=== PATIENT | female | born 1990 | race Asian ===

== ENCOUNTER 2016-12-11 11:33 | Emergency (ER) | payer OTHER ==
[2016-12-11 11:38] VITALS: BP 153/80; PULSE 77; TEMP 98; BMI 27.3
--- NOTE | 2016-12-11 11:59 | PDOC ---
History of Present Illness - General History Source: Patient Exam Limitations: No Limitations - History of Present Illness Initial Comments: 12/11/16 12:28 Patient is a 26 year old female with a significant past medical history of gout who present to the ED with vaginal bleeding for 3 weeks. Patient states that she has been actively bleeding for 3 weeks passing some quarter size clots. Patient notes that she is changing pads every 3 hours. 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 Patient states that at the time her urine was negative. She notes that the bleeding started again 3 weeks ago and has been daily. Patient states that she is sexually active denies any STD. Patient notes that her menstruation started at 9-10 years old with her periods are regular 3-4 days. <Neisha Yu - Last Filed: 12/11/16 13:08> - General History Source: Patient, Old Records Exam Limitations: No Limitations <Maria Elena Rome - Last Filed: 12/11/16 14:37> - General Chief Complaint: Vaginal Bleeding Stated Complaint: VAGINAL BLEEDING Time Seen by Provider: 12/11/16 11:57 Past History <Neisha Yu - Last Filed: 12/11/16 13:08> - Past Medical History Other medical history: gout - Psycho/Social/Smoking Cessation Hx Anxiety: No Suicidal Ideation: No Smoking History: Never smoked Have you smoked in the past 12 months: No Information on smoking cessation initiated: No Hx Alcohol Use: No Drug/Substance Use Hx: No Substance Use Type: None <Maria Elena Rome - Last Filed: 12/11/16 14:37> - Past Medical History Allergies/Adverse Reactions: Allergies Allergy/AdvReac Type Severity Reaction Status Date / Time No Known Allergies Allergy Verified 12/11/16 11:35 Review of Systems - Review of Systems Able to Perform ROS?: Yes Comments:: 12/11/16 12:28 GENERAL/CONSTITUTIONAL: No fever or chills. No weakness. HEAD, EYES, EARS, NOSE AND THROAT: No change in vision. No ear pain or discharge. No sore throat. CARDIOVASCULAR: No chest pain or shortness of breath. RESPIRATORY: No cough, wheezing, or hemoptysis. GASTROINTESTINAL: No nausea, vomiting, diarrhea or constipation. GENITOURINARY: (+)vaginal bleeding. No dysuria, frequency, or change in urination. MUSCULOSKELETAL: No joint or muscle swelling or pain. No neck or back pain. SKIN: No rash NEUROLOGIC: No headache, vertigo, loss of consciousness, or change in strength/ sensation. ENDOCRINE: No increased thirst. No abnormal weight change. HEMATOLOGIC/LYMPHATIC: No anemia, easy bleeding, or history of blood clots. ALLERGIC/IMMUNOLOGIC: No hives or skin allergy. <Neisha Yu - Last Filed: 12/11/16 13:08> *Physical Exam - Vital Signs Last Vital Signs Temp Pulse Resp BP Pulse Ox 98 F 77 18 153/80 100 12/11/16 11:35 12/11/16 11:35 12/11/16 11:35 12/11/16 11:35 12/11/16 11:35 - Physical Exam Comments: 12/11/16 12:32 GENERAL: Awake, alert, and fully oriented, in no acute distress HEAD: No signs of trauma EYES: PERRLA, EOMI, sclera anicteric, conjunctiva clear ENT: Auricles normal inspection, hearing grossly normal, nares patent, oropharynx clear without exudates. Moist mucosa NECK: Normal ROM, supple, no lymphadenopathy, JVD, or masses LUNGS: Breath sounds equal, clear to auscultation bilaterally. No wheezes, and no crackles HEART: Regular rate and rhythm, normal S1 and S2, no murmurs, rubs or gallops ABDOMEN: (+) Obese. Soft, nontender, normoactive bowel sounds. No guarding, no rebound. No masses EXTREMITIES: Normal range of motion, no edema. No clubbing or cyanosis. No cords, erythema, or tenderness NEUROLOGICAL: Cranial nerves II through XII grossly intact. Normal speech, normal gait SKIN: Warm, Dry, normal turgor, no rashes or lesions noted. PELVIC EXAM: (+)Small amount of blood in the vaginal vault, (+)External os was fingertip open, (+)No cvt or uterine tenderness. <Neisha Yu - Last Filed: 12/11/16 13:08> - Vital Signs Last Vital Signs Temp Pulse Resp BP Pulse Ox 98 F 77 18 153/80 100 12/11/16 11:35 12/11/16 11:35 12/11/16 11:35 12/11/16 11:35 12/11/16 11:35 <Maria Elena Rome - Last Filed: 12/11/16 14:37> ED Treatment Course - LABORATORY CBC & Chemistry Diagram: 12/11/16 12:59 12/11/16 12:59 <Maria Elena Rome - Last Filed: 12/11/16 14:37> Medical Decision Making - Medical Decision Making 12/11/16 12:20 26-year-old female with history of gout presents the emergency department with vaginal bleeding 3 weeks. Differential diagnosis includes but is not limited to : , abnormal , anemia, thyroid disease, dehydration, iron deficiency, toxic/metabolic derangement. Plan: 1. CBC and beta hCG 2. Urine analysis 3. Observe and reevaluate 12/11/16 14:35 Addendum: Labs are reviewed and are noted in the EMR. The TSH is normal and beta hCG is less than 1. The hemoglobin is 11. I've discussed the results with the patient. The plan is to discharge home and follow-up with her iron guardrail installer within the next 3-5 days. I've also advised the patient to return to the emergency department if her symptoms persist, worsen, or new symptoms arise. <Maria Elena Rome - Last Filed: 12/11/16 14:37> *DC/Admit/Observation/Transfer - Attestations Scribe Attestion: 12/11/16 12:33 Documentation prepared by JOVAN Friend, acting as medical research tech for Maria Elena Rome MD. <Neisha Yu - Last Filed: 12/11/16 13:08> - Discharge Dispostion Admit: No - Attestations Physician Attestion: 12/11/16 12:21 I, Dr. Maria Elena Rome, attest that the scribes documentation that appears above has been prepared under my direction and personally reviewed by me in its entirety. I confirmed that the note above accurately reflects all work, treatment, procedures, and medical decision-making performed by me. <Maria Elena Rome - Last Filed: 12/11/16 14:37> Diagnosis at time of Disposition: Vaginal bleeding - Discharge Dispostion Disposition: HOME Condition at time of disposition: Stable - Referrals Referrals: STAFF,NOT ON [Primary Care Provider] - - Patient Instructions Printed Discharge Instructions: DI for Menorrhagia Additional Instructions: Please follow-up with your emergency department coordinator within the next 3-5 days. Return to the emergency department if your symptoms persist, worsen, or new symptoms arise.
[2016-12-11 13:26] LABS: BASOPHIL 0.7 % (0-2.0); EOSINOPHIL 3.7 % (0-4.5); MCH 27.1 pg (25.7-33.7); MCHC 33.2 g/dl (32.0-36.0); MEAN CELL VOLUME 81.5 fl (80-96); MEAN PLT VOLUME 8.3 fl (7.5-11.1); NEUTROPHILS 60.6 % (42.8-82.8); PLATELET COUNT 254 K/MM3 (134-434); RDW 14.4 % (11.6-15.6); WHITE BLOOD COUNT 6.5 K/mm3 (4.0-10.0)
[2016-12-11 14:07] LABS: CALCIUM 8.8 mg/dL (8.5-10.1); COCKROFT - GAULT 184.739; CREATININE 0.6 mg/dL (0.55-1.02)
[2016-12-11 14:14] LABS: THYROID STIMULATING HORMONE 0.83 uIU/ml (0.358-3.74)
[2016-12-11 14:20] LABS: URINE APPEARANCE SLCLOUDY; URINE BILIRUBIN NEGATIVE (NEGATIVE); URINE COLOR YELLOW; URINE GLUCOSE (UA) NEGATIVE (NEGATIVE); URINE KETONE NEGATIVE (NEGATIVE); URINE LEUK ESTERASE NEGATIVE (NEGATIVE); URINE NITRITE NEGATIVE (NEGATIVE); URINE UROBILINOGEN NEGATIVE E.U./dl (0.2-1.0)
[2016-12-11 14:23] LABS: URINE BLOOD 3+ (NEGATIVE); URINE PROTEIN 1+ (NEGATIVE)
[2016-12-11 14:25] LABS: URINE RBC 2262 /hpf (0-3)
== END 2016-12-11 15:00 | disposition home or self-care (01) ==
LOC: JER 11:33
DX: N93.8 Other specified abnormal uterine and vaginal bleeding (principal)
CPT/HCPCS: 36415; 80048; 81003; 81015; 84443; 84702; 85025; 86850; 86900; 86901; 99281-25

== ENCOUNTER 2017-10-01 11:12 | Emergency (ER) | payer SELFPAY ==
[2017-10-01 11:21] VITALS: TEMP 97.8; BMI 36.6
[2017-10-01] MEDS ORDERED: SODIUM CHLORIDE 1,000 ML IV STA (11:38)
[2017-10-01] MEDS ORDERED: KETOROLAC TROMETHAMINE 30 MG/1 ML VIAL IVPUSH ONE (11:38)
--- NOTE | 2017-10-01 12:00 | PDOC ---
History of Present Illness - General Chief Complaint: Pain, Acute Stated Complaint: BACK PAIN Time Seen by Provider: 10/01/17 11:22 History Source: Patient Exam Limitations: No Limitations - History of Present Illness Travel History: No Initial Comments: 10/01/17 12:00 27-year-old female with no past medical history presents to the ED for evaluation of strong-smelling urine since last Tuesday now associated with sharp intermittent right back/flank pain worsened with movement but relieved with Naprosyn. Patient states initially that was muscle skeletal pain but when pain continued depsite a few doses of Naprosyn,, she decided come to the ER. Patient denies fever, chills, lower abdominal pain, vaginal discharge, or vaginal bleeding. Patient states has irregular menses, with the last menstrual cycle occurring 2 months ago. 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 Patient denies history of renal colic but states brother with history of kidney stones. Timing/Duration: reports: getting worse, intermittent Quality: reports: sharpness Abdominal Pain Onset Location: reports: flank (right) Pain Radiation: reports: no radiation Activities at Onset: reports: none Aggravating Factors: improves with: Movement Alleviating Factors: improves with: None Past History - Past Medical History Allergies/Adverse Reactions: Allergies Allergy/AdvReac Type Severity Reaction Status Date / Time No Known Allergies Allergy Verified 12/11/16 11:35 Home Medications: Ambulatory Orders NK [No Known Home Medication] 10/01/17 COPD: No - Reproductive History (#): 0 - Suicide/Smoking/Psychosocial Hx Smoking History: Never smoked Have you smoked in the past 12 months: No Information on smoking cessation initiated: No Hx Alcohol Use: No Drug/Substance Use Hx: No Substance Use Type: None Patient Lives Alone: No Lives with/in: parents Review of Systems - Review of Systems Able to Perform ROS?: Yes Constitutional: No: Symptoms Reported HEENTM: No: Symptoms Reported Respiratory: No: Symptoms reported Cardiac (ROS): No: Symptoms Reported ABD/GI: Yes: Nausea (earlier this week), Abdominal cramping. No: Poor Appetite , Poor Fluid Intake : Yes: Flank Pain, Other (strong smelling urine) Musculoskeletal: Yes: Back Pain (right) Integumentary: No: Symptoms Reported Neurological: No: Symptoms reported Hematologic/Lymphatic: No: Symptoms Reported *Physical Exam - Vital Signs Last Vital Signs Temp Pulse Resp BP Pulse Ox 97.8 F 76 20 123/60 99 10/01/17 11:19 10/01/17 11:19 10/01/17 11:19 10/01/17 11:19 10/01/17 11:19 - Physical Exam General Appearance: Yes: Nourished, Appropriately Dressed. No: Apparent Distress Respiratory/Chest: positive: Lungs Clear, Normal Breath Sounds. negative: Respiratory Distress, Accessory Muscle Use Cardiovascular: positive: Regular Rhythm, Regular Rate. negative: Murmur Female Pelvic Exam: positive: normal external exam, cervical os closed. negative: CMT, adnexal tenderness, vaginal bleeding Gastrointestinal/Abdominal: positive: Soft, Tenderness (right flank, mild ruq, mild rlq, no suprapubic tenderness.) Musculoskeletal: positive: CVA Tenderness (R). negative: Vertebral Tenderness ( no midline tenderness, + right paraspinous at L4-L5) Integumentary: positive: Normal Color, Warm, Moist Neurologic: positive: Motor Strength 5/5 (ambulatory) ED Treatment Course - LABORATORY CBC & Chemistry Diagram: 10/01/17 12:10 10/01/17 12:10 - RADIOLOGY Radiology Studies Ordered: Category Date Time Status KIDNEY / RENAL US [US] Stat Ultrasound 10/01/17 11:38 Ordered Medical Decision Making - Medical Decision Making 10/01/17 12:00 Patient here with strong smelling urine now with right-sided back pain. Patient on exam with right paraspinous tenderness at L5CVA and right flank tenderness. Patient also with mild right upper quadrant tenderness. Differential diagnosis: Pyelonephritis, renal colic, renal mass, UTI, cholecystitis, muscle skeletal pain Orders: CBC, comp, lipase, urinalysis urine and urine culture. Patient also ordered for IV fluids. Laboratory Tests 10/01/17 10/01/17 10/01/17 11:50 12:10 12:10 WBC 7.4 Hgb 11.6 Hct 34.9 Plt Count 286 Neutrophils % 62.7 Sodium 140 Potassium 4.3 Chloride 107 Carbon Dioxide 26 Anion Gap 7 L BUN 16 Creatinine 0.5 L Random Glucose 78 Calcium 8.6 Total Bilirubin 0.3 AST 19 ALT 28 Alkaline Phosphatase 43 L Lipase 195 Urine pH 6.0 Ur Specific [place] 1.015 Urine Ketones Negative Urine Blood Negative Urine Nitrite Negative Ur Leukocyte Esterase Negative Urine HCG, Qual Negative 10/01/17 13:19 Ultrasound shows normal size kidneys with no hydronephrosis or shadowing calculus identified within either kidney. The visualized portion of the right hepatic lobe is echogenic compatible with steatosis. Patient on reexam with mild right-sided back pain and right paraspinous tenderness at L4-L5. Patient be given 5 mg of Flexeril secondary to likely muscle skeletal pain. 10/01/17 13:45 Patient also added for transvaginal ultrasound to rule out right ovarian cyst versus torsion. 10/01/17 14:06 Transvaginal ultrasound shows no evidence of ovarian torsion at this time. Patient will be discharged home with Flexeril and supportive care instructions. *DC/Admit/Observation/Transfer Diagnosis at time of Disposition: Right-sided back pain Qualifiers: Back pain location: low back pain Chronicity: acute Sciatica presence: without sciatica Qualified Code(s): M54.5 - Low back pain - Discharge Dispostion Disposition: HOME Condition at time of disposition: Improved - Referrals - Patient Instructions Printed Discharge Instructions: DI for Musculoskeletal Pain Additional Instructions: Please take Motrin 600 mg every 8 hours along with Flexeril as needed for discomfort. May apply a heating pad to the area at this point. If pain continues consider following up with your PMD and/or orthopedist - Post Discharge Activity
[2017-10-01 12:07] LABS: HCG,QUALITATIVE URINE NEGATIVE
[2017-10-01 12:08] LABS: URINE APPEARANCE CLEAR; URINE BILIRUBIN NEGATIVE (NEGATIVE); URINE BLOOD NEGATIVE (NEGATIVE); URINE COLOR LTYELLOW; URINE GLUCOSE (UA) NEGATIVE (NEGATIVE); URINE KETONE NEGATIVE (NEGATIVE); URINE LEUK ESTERASE NEGATIVE (NEGATIVE); URINE NITRITE NEGATIVE (NEGATIVE); URINE PROTEIN NEGATIVE (NEGATIVE); URINE UROBILINOGEN NEGATIVE mg/dL (0.2-1.0)
[2017-10-01] MEDS ORDERED: KETOROLAC TROMETHAMINE 30 MG/1 ML VIAL ONE (12:16)
[2017-10-01 12:19] LABS: BASO % 0.7 % (0-2.0); EOS % 3.8 % (0-4.5); HEMATOCRIT 34.9 % (32.4-45.2); HEMOGLOBIN 11.6 GM/dL (10.7-15.3); LYMPH % 26.6 % (8-40); MCHC 33.2 g/dl (32.0-36.0); MEAN CELL VOLUME 78.5 fl (80-96); MEAN PLT VOLUME 8.1 fl (7.5-11.1); MONO % 6.2 % (3.8-10.2); NEUT % 62.7 % (42.8-82.8); PLATELET COUNT 286 K/MM3 (134-434); RBC 4.44 M/mm3 (3.60-5.2); RDW 14.6 % (11.6-15.6); WHITE BLOOD COUNT 7.4 K/mm3 (4.0-10.0)
[2017-10-01 13:05] LABS: ALBUMIN 3.8 g/dl (3.4-5.0); ALK PHOS 43 U/L (45-117); ANION GAP 7 (8-16); BILIRUBIN,TOTAL 0.3 mg/dL (0.2-1.0); BLOOD UREA NITROGEN 16 mg/dL (7-18); CALCIUM 8.6 mg/dL (8.5-10.1); CHLORIDE 107 mmol/L (98-107); CO2 26 mmol/L (21-32); CREATININE 0.5 mg/dL (0.55-1.02); GLUCOSE,RANDOM 78 mg/dL (74-106); LIPASE 195 U/L (73-393); POTASSIUM 4.3 mmol/L (3.5-5.1); SGOT/AST 19 U/L (15-37); SGPT/ALT 28 U/L (12-78); SODIUM 140 mmol/L (136-145); TOT PROT 7.3 g/dl (6.4-8.2)
[2017-10-01] MEDS ORDERED: CYCLOBENZAPRINE HCL 10 MG TABLET (FP) PO ONE (13:20)
[2017-10-01] MEDS ORDERED: CYCLOBENZAPRINE HCL 10 MG TABLET (FP) ONE (13:27)
[2017-10-01 14:26] VITALS: BP 138/95; PULSE 83
== END 2017-10-01 14:26 | disposition home or self-care (01) ==
LOC: JER 11:12
PROC: 3E0333Z Introduction of Anti-inflammatory into Peripheral Vein, Percutaneous Approach (ICD-10-PCS; principal; 2017-10-01)
DX: M54.5 Low back pain (principal)
CPT/HCPCS: 36415; 76775-TC; 76830-TC; 80053; 81003; 83690; 84703; 85025; 87086; 99283-25

== ENCOUNTER 2021-01-10 19:09 | Emergency (ER) | payer SELFPAY ==
[2021-01-10 19:24] VITALS: BP 156/99; PULSE 89; TEMP 98.5; BMI 42.0
[2021-01-10] MEDS ORDERED: METHOCARBAMOL 500 MG TABLET PO ONE (20:38)
[2021-01-10] MEDS ORDERED: LIDOCAINE 5% TOPICAL PATCH TP ONE (20:38)
[2021-01-10] MEDS ORDERED: IBUPROFEN 400 MG TABLET (FP) PO ONE (20:39)
[2021-01-10] MEDS ORDERED: METHOCARBAMOL 500 MG TABLET ONE (20:55)
[2021-01-10] MEDS ORDERED: LIDOCAINE 5% TOPICAL PATCH ONE (20:56)
[2021-01-10] MEDS ORDERED: IBUPROFEN 600 MG TABLET (FP) PO ONE (20:56)
[2021-01-10] MEDS ORDERED: LIDOCAINE PATCH REMOVAL MC SCH (22:00)
== END 2021-01-10 22:00 | disposition home or self-care (01) ==
LOC: JER 19:09
DX: F45.41 Pain disorder exclusively related to psychological factors (principal); R20.2 Paresthesia of skin; M79.10 Myalgia, unspecified site
CPT/HCPCS: 82962; 93005; 93010; 99284-25